=== PATIENT | male | born 1995 | race Caucasian/White ===

== ENCOUNTER 2017-01-10 17:56 | Emergency (ER) | payer BC ==
--- NOTE | ~2017-01-10 | ER ---
PATIENT'S NAME: IVAN ROMERO [facility] AGE: 21 Y [address] ROOM: [place] [id number] LOCATION: [facility] ADMIT DATE: 01/10/2017 ER/Outpatient Report DISCHARGE DATE: 01/10/2017 FAMILY PHYSICIAN: Gokul Woodson MD ATTENDING PHYSICIAN: Chau Oshea Time of Arrival: 1801 hours. Time of Evaluation: 1810 hours. CHIEF COMPLAINT: Left hand laceration. HISTORY OF PRESENT ILLNESS: The patient states approximately 2 hours prior to arrival, he was playing football. The football was going to hit the pickup, so he jumped up and attempted to bat the football away, caught his left hand on the pickup mirror, causing a laceration to the dorsal aspect of his hand. He states initially he did not have any problems. His mom asked him if he could move all of his fingers, and he felt a pop and was unable to extend his left ring finger after that. Denies any other injury with the incident. ALLERGIES: PENICILLIN. CURRENT MEDICATIONS: None. PAST MEDICAL HISTORY: Back problems. PAST SURGICAL HISTORY: Include meniscus debridement on the left knee, patellar surgery, and diskectomy. SOCIAL HISTORY: He presents tonight with his parents. Denies use of tobacco or drugs. Drinks alcohol on a social basis. REVIEW OF SYSTEMS: All negative other than those mentioned in the HPI. Mom is unsure of his last tetanus. He did take some ibuprofen prior to arrival. PHYSICAL EXAMINATION: VITAL SIGNS: Weight is 96.3 kg, blood pressure is 125/58, pulse is 73, respirations 16, temperature of 98.9, O2 saturation is 98% on room air. PATIENT'S NAME: IVAN ROMERO [facility] AGE: 21 Y [address] ROOM: [place], [place] [address] LOCATION: [facility] ADMIT DATE: 01/10/2017 ER/Outpatient Report DISCHARGE DATE: 01/10/2017 FAMILY PHYSICIAN: Gokul Woodson MD ATTENDING PHYSICIAN: Chau Oshea GENERAL: He is awake, alert, and oriented x4. SKIN: Helen, warm, and dry. RESPIRATIONS: Even and nonlabored. Lung sounds are clear throughout. HEART: Regular rate and rhythm. The patient has a laceration to the dorsal left hand, is approximately 2.5 cm long. He has good sensation to all of his fingers. He is unable to extend his left ring finger. LABORATORY DATA AND X-RAYS: X-ray was completed and reviewed with Dr. Ramirez. No bony abnormality was seen. Tetanus updated with a Tdap. EMERGENCY DEPARTMENT COURSE: Dr. David was contacted as the patient's family has been getting his ortho care through [facility]. Dr. David asked that I call Dr. Nguyễn and see if he would be able to fix it tonight as he is on-call for trauma ortho. Otherwise go ahead and clean it close it and have the patient see Dr. Mendez on Thursday. Dr. David did talk to mom on the phone regarding the plan of care. Dr. Nguyễn was contacted. He prefers to have the patient see Dr. Mendez on Thursday as he does not do tendon repairs of the hand. Laceration was cleansed with saline and anesthetized with 1% plain Xylocaine, and then cleansed well with saline and Betadine. The area was irrigated. No debridement or foreign objects noted. Laceration was closed with 4-0 Ethilon x5 stitches. The patient tolerated the procedure well. Dressing was applied. An aluminum splint was applied to help extend his ring finger. IMPRESSION: 1. Laceration. 2. Damage to the extended tendon of the left ring finger. PLAN: Home, rest. Keep the area clean and dry. Follow up with [facility] on Thursday. The patient and his family verbalized understanding. NIESHA CLEMENTS APRN FOR MD HEIKE JOHN/keyla /[id number] d: 01/10/172201 t: 01/20/171825, OUTPATIENT REPORT
[~2017-01-10 17:56] MED LIST: COLACE100 MG PO; CUBICIN (NON-F500 MG IV; MIRALAX PO527 GM/BOT PO; MOTRIN600 MG PO; PERCOCET 5-3251 EACH PO; PREDNISONE DOSE PACK PO; ROXICODONE 5MG (5 MG PO; TYLENOL EXTRA500 MG PO; VALIUM2 MG PO
== END 2017-01-10 18:57 | disposition disaster alternative care site (69) ==
LOC: GACC 17:56
PROC: 0HQGXZZ Repair Left Hand Skin, External Approach (ICD-10-PCS; principal; 2017-01-10)
DX: S61.412A Laceration without foreign body of left hand, initial encounter (principal); Z23 Encounter for immunization; Z88.0 Allergy status to penicillin; Z98.890 Other specified postprocedural states; W22.8XXA Striking against or struck by other objects, initial encounter; Y93.61 Activity, american tackle football

== ENCOUNTER → 2017-04-13 | Emergency (ER) | payer BC | LOC: GAMB 15:47 | DX: T14.90 Injury, unspecified (principal); V00-Y99 External causes of morbidity; Y92.410 Unspecified street and highway as the place of occurrence of the external cause ==